=== PATIENT | female | born 1980 | race Two or more races ===

== ENCOUNTER 2017-03-26 11:46 | Emergency (ER) | payer MEDICAID, OTHER ==
[~2017-03-26] VITALS: Ht 165.1 cm; Wt 99.4 kg
[~2017-03-26 11:46] MED LIST: ACET50TA PO; DOCU10ELUD PO; IBUP600T26 PO; MOM30SS PO
[2017-03-26] MEDS ORDERED: ONDANSETRON 4MG/2ML VIAL (J2405) IV ONE (13:30)
[2017-03-26] MEDS ORDERED: KETOROLAC 30 MG/ML VIAL (J1885) IV ONE (13:30)
[2017-03-26 13:33] LABS: CONTROL LINE UCG INT CTR LINE PRESENT
[2017-03-26 14:13] LABS: BASO % 0.3 % (0.0-1.0); EOS # 0.1 K/mm3 (0.0-0.50); EOS % 0.4 % (0.0-3.0); LARGE UNSTAINED CELL # 0.1 K/mm3 (0.0-0.4); LARGE UNSTAINED CELL % 0.5 % (0.0-4.0); LYMPH # 1.2 K/mm3 (1.5-4.5); LYMPH % 8.6 % (24.0-44.0); MEAN CORPUSCULAR HEMOGLOBIN 29.9 pg (27.0-33.0); MEAN CORPUSCULAR HGB CONC 33.4 g/dl (32.0-36.5); MEAN CORPUSCULAR VOLUME 89.3 fl (80.0-96.0); MONO # 0.3 K/mm3 (0.0-0.8); MONO % 2.3 % (0.0-5.0); NEUTROPHILS # 11.1 K/mm3 (1.8-7.7); NEUTROPHILS % 87.7 % (36.0-66.0); PLATELET COUNT, AUTOMATED 195 k/mm3 (150-450); RED CELL DISTRIBUTION WIDTH 13.1 % (11.5-14.5); WHITE BLOOD COUNT 12.7 K/mm3 (4.0-10.0)
[2017-03-26 14:24] LABS: ANION GAP 6 MEQ/L (8-16); BLOOD UREA NITROGEN 13 MG/DL (7-18); CALCIUM LEVEL 9.5 MG/DL (8.5-10.1); CARBON DIOXIDE LEVEL 28 MEQ/L (21-32); CHLORIDE LEVEL 107 MEQ/L (98-107); CREATININE FOR GFR 0.77 MG/DL (0.55-1.02); GLOMERULAR FILTRATION RATE > 60.0 (>60); GLUCOSE, FASTING 99 MG/DL (70-105); POTASSIUM SERUM 3.9 MEQ/L (3.5-5.1); SODIUM LEVEL 141 MEQ/L (136-145)
--- NOTE | 2017-03-26 14:54 | REP ---
CT ABDOMEN AND PELVIS WITHOUT CONTRAST: CT abdomen and pelvis performed without oral or IV contrast. Sagittal and coronal reconstruction images are performed. Visualized lung bases are clear. Liver is grossly unremarkable. Patient has had a prior cholecystectomy. Spleen, adrenals, pancreas, and left kidney are grossly unremarkable. Right kidney demonstrates moderate hydronephrosis and there is moderate proximal right hydroureter caused by a 5 mm stone in the proximal right ureter at the L2-3 disc level. There is no abdominal aortic aneurysm. There is no adenopathy. There is no free air. There is no bowel wall thickening. There is no evidence of appendicitis. Metallic clip is seen in the right lower quadrant. There is mild free fluid in the pelvis which is likely physiologic in nature. IMPRESSION: 5 mm calculus in the proximal right ureter at the L2-3 disc level, causing moderate right hydroureteronephrosis. Signed by Adrián Moore MD 03/27/2017 05:11 P
[2017-03-26] MEDS ORDERED: ZOFR4TAB3 PO (15:04)
[2017-03-26] MEDS ORDERED: FLOM5CAP PO (15:04)
[2017-03-26] MEDS ORDERED: NAPR500T PO (15:04)
[2017-03-26] MEDS ORDERED: NORCOTAB PO (15:04)
[2017-03-26 15:22] VITALS: BP 140/95
== END 2017-03-26 15:27 | disposition home or self-care (01) ==
LOC: M ED 13:17
DX: N20.1 Calculus of ureter (principal); N04.9 Nephrotic syndrome with unspecified morphologic changes

== ENCOUNTER → 2017-04-01 | Outpatient (REF) | payer OTHER ==
[~2017-04-01] MED LIST changes: +FLOM5CAP PO; +NAPR500T PO; +NORCOTAB PO; +ZOFR4TAB3 PO
== END ==
LOC: M SMT 12:58
PROVIDERS: ATTEND Nurse Practitioner Women's Health
DX: N13.2 Hydronephrosis with renal and ureteral calculous obstruction (principal)

== ENCOUNTER → 2017-04-09 | Outpatient (CLI) | payer OTHER ==
[~2017-04-09] MED LIST changes: +CIPR-249 PO; +PERC5TAB12 PO
--- NOTE | 2017-04-09 09:11 | REP ---
Clinical: Nephroureterolithiasis. Technique: Single supine view of the abdomen and pelvis. Comparison: CT dated 03/26/2017. Findings: No obvious renal or ureteral calcifications are appreciated. Densities in the pelvis most compatible with phleboliths. Bowel gas pattern is nonspecific. The patient is status post tubal ligation. Skeletal structures are intact. Impression: No obvious urinary tract calcifications appreciated. Signed by Mike Davenport MD 04/09/2017 09:02 A
== END ==
LOC: M SMT 08:42
PROVIDERS: ATTEND Nurse Practitioner Women's Health
DX: N13.2 Hydronephrosis with renal and ureteral calculous obstruction (principal)

== ENCOUNTER 2017-04-13 18:49 | Emergency (ER) | payer OTHER ==
[~2017-04-13] VITALS: Ht 165.1 cm; Wt 98.5 kg
[~2017-04-13 18:49] MED LIST changes: -CIPR-249 PO; -PERC5TAB12 PO
[2017-04-13 20:10] LABS: CONTROL LINE UCG INT CTR LINE PRESENT
[2017-04-13 20:17] LABS: CALCIUM OXALATE CRYSTALS SMALL
[2017-04-13] MEDS ORDERED: ONDANSETRON 4MG/2ML VIAL (J2405) IV ONE (21:00)
[2017-04-13] MEDS ORDERED: MORPHINE 2 MG/ML 1ML SYRINGE IV ONE (21:00)
[2017-04-13 21:10] LABS: BASO % 0.3 % (0.0-1.0); EOS # 0.1 K/mm3 (0.0-0.50); EOS % 0.7 % (0.0-3.0); LARGE UNSTAINED CELL # 0.1 K/mm3 (0.0-0.4); LYMPH # 1.5 K/mm3 (1.5-4.5); LYMPH % 11.8 % (24.0-44.0); MEAN CORPUSCULAR HGB CONC 33.3 g/dl (32.0-36.5); MONO # 0.4 K/mm3 (0.0-0.8); MONO % 3.3 % (0.0-5.0); NEUTROPHILS # 9.8 K/mm3 (1.8-7.7); PLATELET COUNT, AUTOMATED 192 k/mm3 (150-450); RED CELL DISTRIBUTION WIDTH 13.2 % (11.5-14.5); WHITE BLOOD COUNT 11.8 K/mm3 (4.0-10.0)
[2017-04-13 21:27] LABS: ANION GAP 6 MEQ/L (8-16); BLOOD UREA NITROGEN 15 MG/DL (7-18); CALCIUM LEVEL 8.9 MG/DL (8.5-10.1); CARBON DIOXIDE LEVEL 27 MEQ/L (21-32); CHLORIDE LEVEL 107 MEQ/L (98-107); CREATININE FOR GFR 0.93 MG/DL (0.55-1.02); GLOMERULAR FILTRATION RATE > 60.0 (>60); GLUCOSE, FASTING 103 MG/DL (70-105); POTASSIUM SERUM 3.9 MEQ/L (3.5-5.1); SODIUM LEVEL 140 MEQ/L (136-145)
--- NOTE | 2017-04-13 21:30 | REPUSA ---
CT of the abdomen and pelvis without contrast Clinical statement: Pain. Technique: Multiple axial CT images were obtained from the base of the lungs to the floor of the pelv is utilizing 5 mm axial slices without administration of contrast. Coronal and sagittal reconstructio ns were also obtained. Comparison: 04/13/2017. Findings: Chest: The visualized lung bases are clear. Abdomen: The kidneys are normal in size bilaterally. There is severe right-sided hydronephrosis and h ydroureter, caused by a 3 mm obstructing stone in the distal right ureter. The left renal collecting system is unremarkable. The liver, spleen, pancreas, and adrenal glands are unremarkable. The aorta d emonstrates normal caliber and contour. There is no abdominal lymphadenopathy or ascites. Pelvis: The bowel is unremarkable, with no obstructive or inflammatory changes. The appendix is nataly l. The urinary bladder is within normal limits. There is no pelvic lymphadenopathy or ascites. The ot her pelvic structures appear unremarkable. Bones: There are no suspicious osseous abnormalities seen. Impression: 1. Interval development of moderately severe right-sided hydronephrosis and hydroureter, caused by 3 mm obstructing stone in the distal right ureter. 2. The other CT findings are stable.
[2017-04-13] MEDS ORDERED: PERC5TAB12 PO (22:09)
[2017-04-13] MEDS ORDERED: CIPR-249 PO (22:09)
[2017-04-13] MEDS ORDERED: FLOM5CAP PO (22:09)
[2017-04-13] MEDS ORDERED: PERCOCET 5MG/325MG TAB As Ordered ONE (22:11)
[2017-04-13] MEDS ORDERED: TAMSULOSIN 0.4 MG CAP PO ONE (22:15)
[2017-04-13] MEDS ORDERED: PERCOCET 5MG/325MG TAB PO ONE (22:15)
[2017-04-13] MEDS ORDERED: CIPROFLOXACIN 500 MG TAB PO ONE (22:15)
[2017-04-13 22:16] VITALS: BP 161/90
== END 2017-04-13 22:31 | disposition home or self-care (01) ==
LOC: M ED 18:49
DX: N13.2 Hydronephrosis with renal and ureteral calculous obstruction (principal)

== ENCOUNTER → 2017-04-14 | Outpatient (CLI) | payer OTHER ==
[~2017-04-14] MED LIST changes: +CIPR-249 PO; +PERC5TAB12 PO
[2017-04-14 14:12] LABS: INR 0.97
== END ==
LOC: M SMT 11:13
PROVIDERS: ATTEND Nurse Practitioner Women's Health
DX: N13.2 Hydronephrosis with renal and ureteral calculous obstruction (principal)

== ENCOUNTER → 2017-04-18 | Day surgery (SDC) | payer OTHER ==
[~2017-04-18] VITALS: Ht 165.1 cm; Wt 98.0 kg
[~2017-04-18] MED LIST changes: +CONRAY-60 60% 50ML VIAL (Q9961) As Ordered ONE; +LIDOCAINE 2% INJ 100 MG/5 ML SDV (FOR ANES.) As Ordered ONE; +LR 1,000 ML IV ONE; +MIDAZOLAM INJ 2 MG/2 ML VIAL (J2250) As Ordered ONE; +ONDANSETRON 4MG/2ML VIAL (J2405) As Ordered ONE; +ONDANSETRON 4MG/2ML VIAL (J2405) IV PRN; +PERCOCET 5MG/325MG TAB PO PRN; +PROPOFOL 200 MG/20 ML VIAL As Ordered ONE; +dexameTHASONE 4 MG/ML 1ML VIAL (J1100) As Ordered ONE; +fentaNYL 100 MCG/2 ML INJECTION (J3010) As Ordered ONE; +fentaNYL 100 MCG/2 ML INJECTION (J3010) IV PRN; +oxyBUTYnin 5 MG TAB PO PRN
--- NOTE | 2017-04-18 11:13 | REP ---
Retrograde pyelogram: Three views. History: Right ureteral stone. 41 seconds of fluoroscopy time is reported. Findings: A sequence of three last image hold fluoroscopic spot radiographs of the right abdomen document right ureteral cannulation, guidewire insertion, contrast injection and double pigtail ureteral stent placement. Tubal ligation clamps are seen. Signed by Remberto Miller MD 04/18/2017 11:19 A
[2017-04-18 13:25] VITALS: BP 182/83
--- NOTE | 2017-04-19 10:05 | RO ---
DATE OF PROCEDURE: 04/18/2017 PREPROCEDURE DIAGNOSIS: Right ureteral stone. POSTPROCEDURE DIAGNOSIS: Right ureteral stone. PROCEDURE: Cystoscopy, right ureteroscopy with basket extraction of stone, right retrograde pyelogram with intraoperative interpretative of images, right ureteral stent placement. SURGEON: Dr. Zeb Lei CREDIT RISK SPECIALIST: None. ANESTHESIA: General. OPERATIVE INDICATIONS: This is a 36-year-old female who was found to have an obstructing 5 mm distal right ureteral stone. She was given trial passage and was unable to pass the stone on her own. It was therefore recommended that she be brought to the operating room today for the above listed procedure. DESCRIPTION OF PROCEDURE: The patient was brought to the operating room, where general anesthesia was induced. Prophylactic antibiotics were infused. She was then placed in the dorsal lithotomy position and prepped and draped in the usual sterile fashion. A rigid cystoscope was then inserted into the urethral meatus and advanced into the bladder. Once within the bladder, a guidewire was advanced up the right collecting system. We then secured the wire to the drape to serve as a safety wire. We then went in the ureter with a short semirigid ureteroscope and in the distal ureter, a 5 mm stone was seen. The stone was then grasped with a basket and removed from the ureter. We then went back in the ureter and no additional stones were seen in the ureter. The ureteroscope was advanced all the way up to the proximal ureter and no other stones were seen. A retrograde pyelogram was performed and was notable for severe right hydronephrosis. At this point, the ureteroscope was withdrawn and the previously placed wire was utilized to advance a #6-[place] x 22-32 cm JJ ureteral stent up the right collecting system. The wire was then removed, and there were adequate curls of the stent in the right renal pelvis and in the bladder. The bladder was then emptied of all fluid, and this marked the conclusion of the procedure. The patient was then taken out of the dorsal lithotomy position, awakened from anesthesia, and transported to the recovery room in stable condition. ESTIMATED BLOOD LOSS: 0 mL. COMPLICATIONS: None. SPECIMENS: Right ureteral stone. PLAN: The patient will followup in the clinic in a few weeks for stent removal. YON
[2017-05-01 00:07] LABS: Size 4x3x3 mm (.)
== END | disposition home or self-care (01) ==
LOC: M SDC 07:00
PROVIDERS: ATTEND Urology
DX: N20.1 Calculus of ureter (principal); J30.9 Allergic rhinitis, unspecified; Z79.899 Other long term (current) drug therapy; Z98.51 Tubal ligation status
CPT/HCPCS: 52332; 52352; 74420; 82360; 88300; C1726; C2617

== ENCOUNTER → 2017-04-29 | Outpatient (REF) | payer OTHER ==
[~2017-04-29] MED LIST changes: -CONRAY-60 60% 50ML VIAL (Q9961) As Ordered ONE; -LIDOCAINE 2% INJ 100 MG/5 ML SDV (FOR ANES.) As Ordered ONE; -LR 1,000 ML IV ONE; -MIDAZOLAM INJ 2 MG/2 ML VIAL (J2250) As Ordered ONE; -ONDANSETRON 4MG/2ML VIAL (J2405) As Ordered ONE; -ONDANSETRON 4MG/2ML VIAL (J2405) IV PRN; -PERCOCET 5MG/325MG TAB PO PRN; -PROPOFOL 200 MG/20 ML VIAL As Ordered ONE; -dexameTHASONE 4 MG/ML 1ML VIAL (J1100) As Ordered ONE; -fentaNYL 100 MCG/2 ML INJECTION (J3010) As Ordered ONE; -fentaNYL 100 MCG/2 ML INJECTION (J3010) IV PRN; -oxyBUTYnin 5 MG TAB PO PRN
== END ==
LOC: M SMT 17:03
PROVIDERS: ATTEND Urology
DX: N39.0 Urinary tract infection, site not specified (principal)

== ENCOUNTER 2022-06-05 21:05 | Emergency (ER) | payer OTHER ==
[~2022-06-05] VITALS: Ht 165.1 cm; Wt 101.9 kg
[~2022-06-05 21:05] MED LIST changes: -ACET50TA PO; -DOCU10ELUD PO; +DOCU5LIQ PO; +FLOM0.4C39 PO; -FLOM5CAP PO; +HYDR-3715 PO; +MAPA500T17 PO; +NAPR-837 PO; -NAPR500T PO; -NORCOTAB PO; +ZOFR4TAB14 PO; -ZOFR4TAB3 PO
[2022-06-05] MEDS ORDERED: OMEP40CA4 PO (21:11)
[2022-06-05 22:31] LABS: APPEARANCE, URINE MANUAL CLEAR (CLEAR); COLOR, URINE MANUAL LT YELLOW (YELLOW)
[2022-06-05 22:33] LABS: BILIRUBIN, URINE MANUAL NEGATIVE (NEGATIVE); BLOOD URINE MANUAL TRACE (NEGATIVE); GLUCOSE, URINE (UA) MANUAL NEGATIVE (NEGATIVE); KETONE, URINE MANUAL NEGATIVE (NEGATIVE); LEUKOCYTE ESTERASE, URINE MAN POSITIVE (NEGATIVE); NITRITE, URINE MANUAL NEGATIVE (NEGATIVE); PROTEIN, URINE MANUAL NEGATIVE (NEGATIVE); UROBILINOGEN, URINE MANUAL NORMAL (NORMAL)
[2022-06-05 22:36] LABS: BASO % 0.3 % (0.0-1.0); EOS # 0.1 10^3/uL (0.0-0.5); EOS % 0.7 % (0.0-3.0); HEMATOCRIT 37.9 % (36.0-47.0); HEMOGLOBIN 12.8 g/dl (12.0-15.5); LYMPH # 2.2 10^3/uL (1.5-5.0); LYMPH % 17.1 % (24.0-44.0); MEAN CORPUSCULAR HEMOGLOBIN 29.8 pg (27.0-33.0); MEAN CORPUSCULAR HGB CONC 33.8 g/dl (32.0-36.5); MEAN CORPUSCULAR VOLUME 88.3 fl (80.0-96.0); MONO # 0.9 10^3/uL (0.0-0.8); MONO % 7.1 % (2.0-8.0); NEUTROPHILS # 9.7 10^3/uL (1.5-8.5); NEUTROPHILS % 74.3 % (36.0-66.0); PLATELET COUNT, AUTOMATED 238 10^3/uL (150-450); RED BLOOD COUNT 4.29 10^6/uL (4.00-5.40)
[2022-06-05] MEDS ORDERED: hydrALAZINE 20MG/ML 1ML VIAL (J0360 PER 20MG) IV STA (22:42)
[2022-06-05 22:48] LABS: SQUAMOUS EPITHELIAL CELL URINE LARGE AMOUNT /hpf (SMALL AMT)
[2022-06-05 22:49] LABS: BACTERIA, URINE SMALL AMOUNT
[2022-06-05 22:50] LABS: HYALINE CAST, URINE NONE SEEN /lpf (0-1)
[2022-06-05] MEDS ORDERED: hydroCHLOROthiazide 12.5 MG CAPSULE PO ONE (23:10)
[2022-06-05] MEDS ORDERED: lisinopriL 5 MG TAB PO ONE (23:10)
[2022-06-05 23:24] LABS: ALBUMIN 3.7 GM/DL (3.2-5.2); ALT/SGPT 36 U/L (12-78); BILIRUBIN,DIRECT 0.3 MG/DL (0.0-0.2); BILIRUBIN,TOTAL 0.5 MG/DL (0.2-1.0); BLOOD UREA NITROGEN 13 MG/DL (7-18); CALCIUM LEVEL 9.2 MG/DL (8.5-10.1); CARBON DIOXIDE LEVEL 23 MEQ/L (21-32); CHLORIDE LEVEL 109 MEQ/L (98-107); CREATININE FOR GFR 0.66 MG/DL (0.55-1.30); FREE T4 0.92 NG/DL (0.76-1.46); GLOMERULAR FILTRATION RATE > 60.0 (>58); GLUCOSE, FASTING 105 MG/DL (70-100); LIPASE 80 U/L (73-393); NT-PRO BNP 119 PG/ML (<125); POTASSIUM SERUM 3.9 MEQ/L (3.5-5.1); SODIUM LEVEL 139 MEQ/L (136-145); THYROID STIMULATING HORMONE 0.973 uIU/ML (0.358-3.740)
[2022-06-05] MEDS ORDERED: HYDR12.55 PO (23:36)
[2022-06-05] MEDS ORDERED: LISI5TAB11 PO (23:36)
[2022-06-06 00:09] VITALS: BP 159/85
== END 2022-06-06 00:10 | disposition home or self-care (01) ==
LOC: M ED 21:05
DX: I10 Essential (primary) hypertension (principal); K21.9 Gastro-esophageal reflux disease without esophagitis; Z79.899 Other long term (current) drug therapy
CPT/HCPCS: 36415; 71045; 80048; 80076; 81000; 83690; 83880; 84439; 84443; 85025; 93005; 93041; 94760; 96374; 99285; J0360

== ENCOUNTER → 2022-06-08 | Outpatient (REF) | payer OTHER ==
[~2022-06-08] MED LIST changes: +HYDR12.55 PO; +LISI5TAB11 PO; +OMEP40CA4 PO
== END ==
LOC: M WUC 19:46
PROVIDERS: ATTEND Student in an Organized Health Care Education/Training Program
DX: R30.0 Dysuria (principal)

== ENCOUNTER → 2022-07-31 | Outpatient (CLI) | payer OTHER | LOC: M WHC 08:51 | PROVIDERS: ATTEND Physician Assistant | DX: Z12.31 Encounter for screening mammogram for malignant neoplasm of breast (principal); R92.8 Other abnormal and inconclusive findings on diagnostic imaging of breast; Z80.3 Family history of malignant neoplasm of breast ==

== ENCOUNTER → 2022-08-15 | Outpatient (CLI) | payer OTHER | LOC: M WHC 07:53 | PROVIDERS: ATTEND Physician Assistant | DX: R92.2 Inconclusive mammogram (principal); N60.01 Solitary cyst of right breast ==

== ENCOUNTER → 2023-07-23 | Outpatient (REF) | payer OTHER, MEDICAID | LOC: M LAB REF 16:39 | PROVIDERS: ATTEND Surgery | DX: L72.0 Epidermal cyst (principal) ==

== ENCOUNTER 2025-01-11 10:22 | Emergency (ER) | payer MEDICAID, OTHER ==
[~2025-01-11] VITALS: Ht 165.1 cm; Wt 87.3 kg
[2025-01-11 13:10] VITALS: BP 133/85; TEMP 97.9; O2SAT 99
== END 2025-01-11 13:26 | disposition home or self-care (01) ==
LOC: M ED 10:22 → EDBD 10:22 → M ED 13:26
DX: S76.312A Strain of muscle, fascia and tendon of the posterior muscle group at thigh level, left thigh, initial encounter (principal); Y92.9 Unspecified place or not applicable; Y93.9 Activity, unspecified; Y99.9 Unspecified external cause status; Z79.899 Other long term (current) drug therapy

== ENCOUNTER → 2025-02-16 | Outpatient (CLI) | payer OTHER ==
[~2025-02-16] MED LIST changes: -FLOM0.4C39 PO; +TAMS-18 PO
[2025-02-16 13:34] LABS: THYROID STIMULATING HORMONE 1.512 uIU/ML (0.55-4.78)
[2025-02-16 13:36] LABS: FREE T4 0.92 NG/DL (0.89-1.76); TOTAL 25(OH) VITAMIN D 71.1 NG/ML (20.0-100.0)
[2025-02-16 13:37] LABS: BASO # 0.1 10^3/uL (0.0-0.2); BASO % 0.9 % (0.0-1.0); EOS # 0.1 10^3/uL (0.0-0.5); EOS % 2.4 % (0.0-3.0); HEMATOCRIT 38.8 % (36.0-47.0); HEMOGLOBIN 12.5 g/dl (12.0-15.5); LYMPH % 37.4 % (24.0-44.0); MEAN CORPUSCULAR HEMOGLOBIN 29.3 pg (27.0-33.0); MEAN CORPUSCULAR HGB CONC 32.2 g/dl (32.0-36.5); MEAN CORPUSCULAR VOLUME 91.1 fl (80.0-96.0); MONO # 0.4 10^3/uL (0.0-0.8); MONO % 7.7 % (2.0-8.0); NEUTROPHILS # 2.7 10^3/uL (1.5-8.5); NEUTROPHILS % 51.4 % (36.0-66.0); PLATELET COUNT, AUTOMATED 188 10^3/uL (150-450); RED BLOOD COUNT 4.26 10^6/uL (4.00-5.40); WHITE BLOOD COUNT 5.3 10^3/uL (4.0-10.0)
[2025-02-16 13:39] LABS: ALBUMIN 3.7 G/DL (3.2-5.2); ALKALINE PHOSPHATASE 69 U/L (35-104); ALT/SGPT 25 U/L (7.0-40); AST/SGOT 21 U/L (<34); BILIRUBIN,TOTAL 0.8 MG/DL (0.3-1.2); BLOOD UREA NITROGEN 10 MG/DL (9-23); CALCIUM LEVEL 8.9 MG/DL (8.5-10.1); CARBON DIOXIDE LEVEL 27 MMOL/L (20-31); CHLORIDE LEVEL 108 MMOL/L (98-107); CHOLESTEROL LEVEL 158 MG/DL (<200); CHOLESTEROL RISK RATIO 3.36 (<5); CREATININE FOR GFR 0.64 MG/DL (0.55-1.30); GLOMERULAR FILTRATION RATE > 90.0 (>58); GLUCOSE, FASTING 86 MG/DL (60-100); HDL CHOLESTEROL 46.9 MG/DL (>40); LDL CHOLESTEROL 95.5 MG/DL (<100); NON-HDL-C 111.1 MG/DL; SODIUM LEVEL 142 MMOL/L (136-145); TOTAL PROTEIN 6.8 G/DL (5.7-8.2); TRIGLYCERIDES LEVEL 78 MG/DL (<150)
== END ==
LOC: M WUC 08:11
DX: I10 Essential (primary) hypertension (principal)

== ENCOUNTER → 2025-07-15 | Outpatient (REF) | payer OTHER | LOC: M LAB REF 11:32 | PROVIDERS: ATTEND Physician Assistant | DX: B34.9 Viral infection, unspecified (principal) ==